=== PATIENT | male | born 1965 | race Caucasian/White ===

== ENCOUNTER → 2019-03-18 11:48 | Outpatient (CLI) | payer SELFPAY ==
[2018-03-19 10:20] VITALS: BMI 25.2
[2019-03-18 12:02] VITALS: BP 136/85; PULSE 62; RESP 16; TEMP 36.4; O2SAT 97; BMI 25.2
--- NOTE | 2019-03-18 12:55 | WMO.HTC_ITS ---
Problem List (1) Von Willebrand disease, type I Status: Chronic Subjective Date of Service:: 03/18/19 Chief Complaint: F/u for VWD type I. History of Present Illness: 53y.o.man with VWD type I, comes in for follow up. No bleeding in the last yr. No dental problems. Health History: Past Medical History Past Medical History: Anxiety,Bleeding disorder Family History Paternal Past Medical History: Heart disease Maternal Past Medical History: Unknown Maternal History of Cancer: Colon cancer Past Medical History (Last Updated 03/18/19 @ 12:01 by Venessa Gutierrez) Bleeding disorder (Acute) Anxiety (Acute) Hypercholesterolemia (Acute) Family History (Last Reviewed 03/18/19 @ 12:01 by Venessa Gutierrez) Mother Colon cancer Father Heart disease Social History Social History: No changes Smoking Status Never smoker Allergies/Adverse Reactions: Allergy/AdvReac Type Severity Reaction Status Date / Time aspirin AdvReac Severe BLEEDING Verified 03/18/19 12:01 Risk Factors Social History Social History: No changes Smoking Status Never smoker Tobacco Risk Data: Tobacco Risk Smoking Status Never smoker Type of tobacco: Smokeless tobacco usage: Never Items/Day: Year started: Years used: Counseled to quit/cut down: Reason for no counseling performed: Reason for no pharmacotherapy: Tobacco use comments: Passive smoke exposure: No Substance Risk Drug use: No Caffeine use [drinks/day]: 2 Alcohol use: No Type of alcohol: Drinks per day: Has patient felt the need to cut down: Has the patient been annoyed by complaints: Has the patient felt guilty about drinking: Has the patient needed an eye branch library clerk in the mornings: Comments: Date of last colonoscopy:: 04/06/04 Review of Systems Constitutional:: Denies: Fever, Sweats, Weight loss, Appetite change, Chills Cardiovascular:: Denies: Chest pain, Palpitations, Dyspnea on exertion, Orthopnea, PND, Shortness of breath Respiratory: Denies: Cough, Hemoptysis, Shortness of Breath, Wheezing Gastrointestinal:: Denies: Abdominal pain, Nausea, Vomiting, Diarrhea, Constipation, Hematochezia Genitourinary: Denies: Dysuria, Hematuria, 15, Flank pain Musculoskeletal:: Denies: Back pain, Myalgia, Arthralgia Skin: Denies: Rash, Skin Changes, Wounds Neurological:: Denies: Headache, Dizziness, Visual changes, Tinnitus, Hearing loss Psychiatric: Denies: Anxiety, Depression, Homicidal Ideations, Suicidal Ideations Vital Signs Height 5 ft 6 in Weight: 70.942 kg Weight in Pounds 156.4 lbs Pulse Ox 97 Temperature 97.6 F Pulse Rate 62 Respiratory Rate 16 Blood Pressure 136/85 Blood Pressure Position Sitting - Physical Exam General: Alert, Oriented x3, No apparent distress HEENT: Atraumatic, PERRLA, EOMI, Normocephalic Oropharynx:: Dry mucosa Neck:: Supple, Trachea midline. Negative for: JVD, bilateral Cardiac:: Regular rate, Regular rhythm, Normal S1, Normal S2. Negative for: Murmur Lungs: Clear to auscultation, Excusion symmetrical. Negative for: Rhonchi, Wheezes Abdomen:: Bowel sounds x 4, Soft, Non-tender, Non-distended. Negative for: Hepatosplenomegaly Extremities:: Negative for: Cyanosis, Edema Neurological: Neuro grossly intact Skin:: Negative for: Lesions, Rash, Petechiae, Ecchymosis Psychiatric:: Appropriate affect, Euthymic Lymphatics:: Negative for: Cervical lymphadenopathy, Supraclavicular lymphadenopathy, Axillary lymphadenopathy Therapy ROM Screening - Subjective Subjective:: Pt states he is doing well- pt reports no concerns at this time. - Objective Right shoulder flex:: 165 Left shoulder flex:: 165 Right shoulder extension:: 55 Left shoulder extension:: 50 Right elbox flex/ext:: 145/0 Left elbox flex/ext:: 145/0 Right elbow circumference:: 26cm Left elbow circumference:: 25cm Right forearm sup/pron:: WNL Left forearm sup/pron:: WNL Right knee flexion:: 120 Left knee flexion:: 120 Right knee circumference:: 33cm Left knee circumference:: 32cm Right ankle dorsiflexion:: 25 Left ankle dorsiflexion:: 25 Right ankle Plan-flex:: 45 Left ankle Plan-flex:: 45 Right ankle circumference:: NT boots on Left ankle circumference:: NT boots on Right hip flexion:: 95 Left hip flexion:: 95 Right hip extension:: 20 Left hip extension:: 20 - Assessment Assessment:: Pt demo ROM WNL no concerns at this time. Assessment and Plan Von Willebrand Disease type I, clinically stable. Plan is to continue expectant management. RTC 1 year. Primary Care Provider: Shane Strong Referring Provider:
== END ==
PROVIDERS: Family Provider Family Medicine; PCP Family Medicine; Visit Provider Internal Medicine Medical Oncology
DX: D68.0 Von Willebrand disease (principal)